=== PATIENT | female | born 1970 | race Two or more races ===

== ENCOUNTER → 2024-03-31 | Outpatient (CLI) | payer MEDICAID, SELFPAY ==
--- NOTE | 2024-03-31 14:45 | XR_ITS ---
Examination: Screening digital mammography, bilateral Computer aided detection 3-D breast Tomosynthesis, bilateral Date and time of exam: March 31, 2024 1426 hours Compared to mammograms dating to August 13, 2020 Indication: Screening Technique: Nonmagnified MLO, CC views of the breasts to been obtained, reconstructed from 3-D Tomosynthesis images. R2 computer aided detection program utilized for evaluation of suspicious masses and/or abnormal calcifications. 3-D Tomosynthesis images obtained. Findings: The breasts are heterogeneously dense, which may obscure small masses 18 mm oval mass 12:00 position right breast anterior depth Benign calcifications Impression: BI-RADS Category 0: Incomplete: Need additional imaging evaluation 18 mm oval mass 12:00 position right breast anterior depth, recommend follow-up spot tomographic views of this mass as well as right breast sonography to complete the workup
== END | disposition home or self-care (01) ==
PROVIDERS: Referring Provider Physician Assistant; Visit Provider Physician Assistant
DX: Z12.31 Encounter for screening mammogram for malignant neoplasm of breast (principal); R92.8 Other abnormal and inconclusive findings on diagnostic imaging of breast; N63.15 Unspecified lump in the right breast, overlapping quadrants
CPT/HCPCS: 77063; 77067

== ENCOUNTER 2024-06-07 11:00 | Day surgery (SDC) | payer MEDICAID, SELFPAY ==
[2024-06-07] VITALS (12 sets, daily range): BP systolic 98–127; BP diastolic 52–73; PULSE 7–87; RESP 11–24; TEMP 36.1; O2SAT 95–100; BMI 32.4
[2024-06-07] MEDS: MIDAZOLAM INJ 1 MG/ML VIAL 2 ML (ASD USE ONLY) 2 MG IV (13:12)
[2024-06-07] MEDS: fentaNYL CIT INJ 50 mCg/ML AMP 2ML (ASD USE ONLY) IV (13:12)
[2024-06-07] MEDS: SIMETHICONE 40 MG/0.6 ML ORAL SYRINGE PO (13:20)
--- NOTE | 2024-06-07 14:39 | SUR.PHASEII ---
[id number] patient is awake, alert, breathing unlabored, s/p colonoscopy by dr Voss, report received from natasha PEARSON 1423 patient is awake, alert, breathing unlabored, meets discharge criteria, discharge instructions given to patient and daughter Elise, patient discharged home in wheelchair with all belongings.
== END 2024-06-07 14:23 | disposition home or self-care (01) ==
PROVIDERS: PCP Physician Assistant; Referring Provider Internal Medicine Gastroenterology; Visit Provider Internal Medicine Gastroenterology
PROC: 0DBE8ZX Excision of Large Intestine, Via Natural or Artificial Opening Endoscopic, Diagnostic (ICD-10-PCS; CPT 45380; principal; 2024-06-07 13:00)
DX: Z12.11 Encounter for screening for malignant neoplasm of colon (principal); K64.8 Other hemorrhoids
CPT/HCPCS: 45378; A4217; J2250; J3010; A9270